=== PATIENT | male | born 1955 | race Caucasian/White ===

== ENCOUNTER 2016-08-15 09:22 | Emergency (ER) | payer OTHER ==
[~2016-08-15] VITALS: Ht 185.4 cm; Wt 75.0 kg
[2016-08-15 09:25] VITALS: BP 146/82; PULSE 100; RESP 18; TEMP 97.8; O2SAT 95
[2016-08-15] MEDS ORDERED: bp pill (09:39)
[2016-08-15 11:03] VITALS: BP 156/76; PULSE 64; RESP 18; O2SAT 99
[2016-08-15] MEDS ORDERED: HYDR-3533 PO (11:16)
--- NOTE | 2016-08-15 11:18 | PD ---
HPI Chief Complaint: Lump, Cyst, Hernia Time Seen by Provider: 11:16 Travel History International Travel<30 days: No Contact w/Intl Traveler<30days: No Traveled to known affect area: No History of Present Illness HPI 60-year-old male presents to the emergency department for evaluation of right inguinal hernia. Patient states this has been going on for 6 months. States that [facility] [place] to [facility] this [facility] but states that he has been unable to get transportation. Pain is aggravated with movement and palpation. He denies any fever, chills, nausea, vomiting, diarrhea, constipation, dysuria. He has not been taking anything for pain. No other complaints. PFSH Past Medical History Heart Rhythm Problems: Yes (VTACH?) Diminished Hearing: No GERD: Yes Hypertension: Yes Immunizations Current: Yes Tetanus Vaccination: < 5 Years Influenza Vaccination: No Past Surgical History Eye Surgery: Yes (L EYE RETINA REATTACHMENT;R EYE CATARACT) Social History Alcohol Use: Yes (6 PK DAY "not for the last four days" 08/15/16) Tobacco Use: Yes (1/2 PPD "probably less than that" 08/15/16) Substance Use: No Allergies-Medications (Allergen,Severity, Reaction): Coded Allergies: No Known Allergies (Verified , 08/06/13) Reported Meds & Prescriptions Reported Meds & Active Scripts Active Lortab (Hydrocodone-Acetaminophen) 5-325 Mg Tab 1 Tab PO Q6H PRN Reported [bp pill] Review of Systems Except as stated in HPI: all other systems reviewed are Neg Physical Exam Narrative GENERAL: Well-nourished and well-developed pleasant male patient in no acute distress who is nontoxic appearing. SKIN: Warm and dry. HEAD: Normocephalic and atraumatic. EYES: No injection, drainage, or hyphema noted. PERRLA. EOMI. ENT: No nasal drainage noted. Oropharynx is clear. NECK: Supple and the trachea is midline. CARDIOVASCULAR: Regular rate and rhythm. RESPIRATORY: Breath sounds are equal bilaterally with no accessory muscle use, wheezing, rhonchi, or crackles. GASTROINTESTINAL: Approximately 4 cm in diameter right inguinal hernia that is soft and easily reducible. Abdomen is soft, non-tender, and nondistended. MUSCULOSKELETAL: No obvious deformities, swelling, cyanosis, or ecchymosis is present throughout the upper and lower extremities. Patient has full range of motion without any signs of neurovascular compromise. NEUROLOGICAL: Awake, alert, and oriented. Normal speech and gait. Cranial nerves are grossly intact. Data Data Last Documented VS Vital Signs Date Time Temp Pulse Resp B/P Pulse Ox O2 Delivery O2 Flow Rate FiO2 08/15/16 11:03 64 18 156/76 99 Room Air 08/15/16 09:25 97.8 MDM Medical Decision Making Medical Screen Exam Complete: Yes Emergency Medical Condition: Yes Differential Diagnosis Reducible inguinal hernia versus incarcerated versus other Narrative Course 60-year-old male presents to the emergency department for evaluation of right inguinal hernia that has been going on for 6 months. Patient is afebrile, vital signs are stable. Patient has no signs or symptoms of an incarcerated or strangulated hernia, it is easily reducible on examination. He is here expecting us to surgically repair the hernia today. He has been referred by the [facility] to go to [place] to have this done. I discussed with him that this is something to schedule an outpatient and that he needs [facility] with the [facility]. We'll give him Lortab for pain. Patient verbalizes understanding. I discussed the case with my attending physician Dr. Avelar who is aware of the patients history, physical examination findings, and treatment plan. Diagnosis Primary Impression: Reducible right inguinal hernia Referrals: General Surgeon Primary Care Physician Patient Instructions: General Instructions Additional Instructions: Take medications as prescribed. Do not take Lortab with alcohol or while driving. [facility] with [facility]. Return to the ED for any acute worsening of symptoms. Med/Other Pt SpecificInfo: Prescription(s) given Scripts Hydrocodone-Acetaminophen (Lortab)5-325 Mg Tab1 Tab PO Q6H PRN (PAIN) #20 TAB Ref 0 Prov:Bebo Avelar MD 08/15/16 Disposition: 01 DISCHARGE HOME Condition: Stable Tracy Schuler Aug 15, 2016 11:18
== END 2016-08-15 12:11 | disposition home or self-care (01) ==
LOC: NEPC 09:22
DX: K40.90 Unilateral inguinal hernia, without obstruction or gangrene, not specified as recurrent (principal); I10 Essential (primary) hypertension; F17.210 Nicotine dependence, cigarettes, uncomplicated
CPT/HCPCS: 99283

== ENCOUNTER 2016-09-15 08:39 | Inpatient (IN) | payer OTHER ==
[~2016-09-15] VITALS: Ht 182.9 cm; Wt 72.0 kg
[2016-09-15] VITALS (7 sets, daily range): BP systolic 120–148; BP diastolic 61–81; PULSE 93–110; RESP 16–22; TEMP 97.5–98.1; O2SAT 93–98
[~2016-09-15 08:39] MED LIST: HYDR-3533 PO; bp pill
[2016-09-15] MEDS ORDERED: SODIUM CHLORIDE 0.9% FLUSH 5 ML FLUSH IVF PRN (09:15)
[2016-09-15] MEDS ORDERED: MORPHINE SULFATE 4 MG/ML INJ IV PUSH ONE ×2 (09:15→11:00)
[2016-09-15] MEDS ORDERED: ONDANSETRON HCL 4 MG/2 ML VIAL IV PUSH ONE (09:15)
[2016-09-15 09:48] LABS: AUTOMATED NEUTROPHIL # 9.4 TH/MM3 (1.8-7.7); BASOPHIL % 0.3 % (0.0-2.0); EOSINOPHIL % 0.1 % (0.0-4.0); HEMATOCRIT 43.3 % (39.0-51.0); HEMO FLAGS DIFF FINAL; LYMPH % 7.2 % (9.0-44.0); LYMPHOCYTE # 0.9 TH/MM3 (1.0-4.8); MEAN CELL VOLUME 101.2 FL (80.0-100.0); MEAN CORPUSCULAR HGB CONC 34.6 % (32.0-36.0); MONO % 14.5 % (0.0-8.0); NEUT % 77.9 % (16.0-70.0); PLATELET COUNT 110 TH/MM3 (150-450); RED BLOOD COUNT 4.28 MIL/MM3 (4.50-5.90); RED CELL DISTRIBUTION WIDTH 14.7 % (11.6-17.2)
--- NOTE | 2016-09-15 09:49 | RADRPT ---
EXAM DATE/TIME: 09/15/2016 09:25 [facility] COMPARISON: No previous studies available for comparison. INDICATIONS : Chest Pain MEDICAL HISTORY : Hypertension. SURGICAL HISTORY : None. ENCOUNTER: Initial ACUITY: 1 day PAIN SCORE: 4/10 LOCATION: Bilateral chest FINDINGS: A single view of the chest demonstrates the lungs to be symmetrically aerated without evidence of mas s, infiltrate or effusion. The cardiomediastinal contours are unremarkable. Osseous structures are intact. CONCLUSION: No acute disease. Louie Chung MD on September 15, 2016 at 9:47 Board Certified Radiologist. This report was verified electronically.
[2016-09-15 09:58] LABS: APTT (PATIENT) 33.4 SEC (24.3-30.1); INTERNATIONAL NORMALIZED RATIO 1.6 RATIO
--- NOTE | 2016-09-15 10:01 | PD ---
HPI Chief Complaint: Abdominal Pain Time Seen by Provider: 09:07 Travel History International Travel<30 days: No Contact w/Intl Traveler<30days: No Traveled to known affect area: No History of Present Illness HPI Patient is a 60-year-old male who presents to emergency room with complaints of abdominal pain and swelling which has increased over the past 3 weeks. Patient reports that he is an alcoholic, reports that he drinks about 5 beers per day for the past 30-40 years. Patient reports that over the past 3 weeks, he has noted increased abdominal swelling. Reports that the swelling has progressed to the point where he is having problems eating and drinking. Reports that he has not been able to eat for the past 2 days as his abdomen is so distended and patient reports that he is overall uncomfortable. Patient reports that his last drink was 4 days ago. Patient reports that he has follow-up with primary care doctor and was last seen about one year ago. Patient was told that at that time, he had liver disease, patient reports that he had never followed up with his "liver problems." Patient with no chest pain or shortness of breath. Patient with no fevers or chills. Patient reports that he feels nauseous as his abdomen is distended, no episodes of emesis. PFSH Past Medical History Heart Rhythm Problems: Yes (VTACH?) Cirrhosis: Yes (hepatitis) Diminished Hearing: No GERD: Yes Hypertension: Yes Immunizations Current: Yes Past Surgical History Eye Surgery: Yes (L EYE RETINA REATTACHMENT;R EYE CATARACT) Family History Family History: Negative Social History Alcohol Use: Yes (6 PK DAY "not for the last four days" 08/15/16) Tobacco Use: Yes (1/2 PPD "probably less than that" 08/15/16) Substance Use: No Allergies-Medications (Allergen,Severity, Reaction): Coded Allergies: No Known Allergies (Verified , 09/15/16) Reported Meds & Prescriptions Reported Meds & Active Scripts Active Reported [bp pill] Review of Systems General / Constitutional: No: Fever Eyes: No: Visual changes HENT: No: Headaches Cardiovascular: No: Chest Pain or Discomfort Respiratory: No: Shortness of Breath Gastrointestinal: Positive: Nausea, Abdominal Pain, No: Vomiting, Diarrhea Genitourinary: No: Dysuria Musculoskeletal: No: Pain Skin: No Rash Neurologic: No: Weakness Psychiatric: No: Depression Endocrine: No: Polydipsia Hematologic/Lymphatic: No: Easy Bruising Physical Exam Narrative GENERAL: moderate distress SKIN: Warm and dry. HEAD: Atraumatic. Normocephalic. EYES: Pupils equal and round. No scleral icterus. No injection or drainage. ENT: No nasal bleeding or discharge. Mucous membranes pink and moist. NECK: Trachea midline. No JVD. CARDIOVASCULAR: tachycardic. No murmur appreciated. RESPIRATORY: No accessory muscle use. Clear to auscultation. Breath sounds equal bilaterally. GASTROINTESTINAL: Abdomen soft, abdomen distended MUSCULOSKELETAL: No obvious deformities. No clubbing. No cyanosis. No edema. NEUROLOGICAL: Awake and alert. No obvious cranial nerve deficits. Motor grossly within normal limits. Normal speech. PSYCHIATRIC: Appropriate mood and affect; insight and judgment normal. Data Data Last Documented VS Vital Signs Date Time Temp Pulse Resp B/P Pulse Ox O2 Delivery O2 Flow Rate FiO2 09/15/16 10:47 105 16 141/79 98 Room Air 09/15/16 08:43 97.7 Orders Complete Blood Count With Diff (09/15/16 09:11) Comprehensive Metabolic Panel (09/15/16 09:11) Lipase (09/15/16 09:11) Prothrombin Time / Inr (Pt) (09/15/16 09:11) Act Partial Throm Time (Ptt) (09/15/16 09:11) Urinalysis - C+S If Indicated (09/15/16 09:11) Ct Abd/Pel W Iv Contrast(Rout) (09/15/16 09:11) Iv Access Insert/Monitor (09/15/16 09:11) Ecg Monitoring (09/15/16 09:11) Oximetry (09/15/16 09:11) Morphine Inj (Morphine Inj) (09/15/16 09:15) Sodium Chloride 0.9% Flush (Ns Flush) (09/15/16 09:15) Electrocardiogram (09/15/16 09:11) Chest, Single Ap (09/15/16 09:11) Ammonia (09/15/16 09:11) Ondansetron Inj (Zofran Inj) (09/15/16 09:15) Urine Culture (09/15/16 09:40) Iohexol 350 Inj (Omnipaque 350 Inj) (09/15/16 10:50) Morphine Inj (Morphine Inj) (09/15/16 11:00) Admit Order (Ed Use Only) (09/15/16 11:49) Labs Laboratory Tests Test 09/15/16 09/15/16 09:00 09:40 White Blood Count 12.0 TH/MM3 Red Blood Count 4.28 MIL/MM3 Hemoglobin 15.0 GM/DL Hematocrit 43.3 % Mean Corpuscular Volume 101.2 FL Mean Corpuscular Hemoglobin 35.0 PG Mean Corpuscular Hemoglobin 34.6 % Concent Red Cell Distribution Width 14.7 % Platelet Count 110 TH/MM3 Mean Platelet Volume 8.4 FL Neutrophils (%) (Auto) 77.9 % Lymphocytes (%) (Auto) 7.2 % Monocytes (%) (Auto) 14.5 % Eosinophils (%) (Auto) 0.1 % Basophils (%) (Auto) 0.3 % Neutrophils # (Auto) 9.4 TH/MM3 Lymphocytes # (Auto) 0.9 TH/MM3 Monocytes # (Auto) 1.7 TH/MM3 Eosinophils # (Auto) 0.0 TH/MM3 Basophils # (Auto) 0.0 TH/MM3 CBC Comment DIFF FINAL Differential Comment Prothrombin Time 18.0 SEC Prothromb Time International 1.6 RATIO Ratio Activated Partial 33.4 SEC Thromboplast Time Sodium Level 135 MEQ/L Potassium Level 4.0 MEQ/L Chloride Level 99 MEQ/L Carbon Dioxide Level 24.9 MEQ/L Anion Gap 11 MEQ/L Blood Urea Nitrogen 20 MG/DL Creatinine 1.01 MG/DL Estimat Glomerular Filtration 75 ML/MIN Rate Random Glucose 76 MG/DL Calcium Level 9.0 MG/DL Total Bilirubin 4.3 MG/DL Aspartate Amino Transf 326 U/L (AST/SGOT) Alanine Aminotransferase 120 U/L (ALT/SGPT) Alkaline Phosphatase 276 U/L Ammonia 16 MCMOL/L Total Protein 6.7 GM/DL Albumin 2.0 GM/DL Lipase 345 U/L Urine Color DARK-YELLOW Urine Turbidity CLEAR Urine pH 6.0 Urine Specific [place] 1.016 Urine Protein NEG mg/dL Urine Glucose (UA) NEG mg/dL Urine Ketones NEG mg/dL Urine Occult Blood NEG Urine Nitrite NEG Urine Bilirubin SMALL Urine Urobilinogen 4.0 MG/DL Urine Leukocyte Esterase NEG Urine RBC 2 /hpf Urine WBC 1 /hpf Urine Squamous Epithelial <1 /hpf Cells Urine Bacteria RARE /hpf Urine Mucus FEW /lpf Microscopic Urinalysis Comment CATH-CULTURE IND MDM Medical Decision Making Medical Screen Exam Complete: Yes Emergency Medical Condition: Yes Interpretation(s) EKG at 0939: Sinus tachycardia at 111bpm, qt/qtc: 389/455, no acute st or t wave changes Vital Signs Date Time Temp Pulse Resp B/P Pulse Ox O2 Delivery O2 Flow Rate FiO2 09/15/16 08:50 17 09/15/16 08:50 97 Room Air 09/15/16 08:43 97.7 109 18 138/81 Differential Diagnosis Ascites, liver failure, electrolyte abnormality, alcohol withdrawal Narrative Course Patient is a 60-year-old male with history of alcohol abuse, presents to ER with c/o of abdominal pain and abdominal swelling. Patient reports that he has not been able to eat/drink for the past 2 days, reports that abdomen is severely distended and painful. Denies hx of ascites or denies hepatic encephalopathy. On evaluation, patient's abdomen is grossly distended and tympanic on evaluation. Fluid most likely ascitic fluid. Patient was placed on residential monitor, IV placed. Labs ordered as well as ekg and ct of abdomen pelvis. LFT's and ammonia level ordered as well Vital Signs Date Time Temp Pulse Resp B/P Pulse Ox O2 Delivery O2 Flow Rate FiO2 09/15/16 10:47 105 16 141/79 98 Room Air 09/15/16 08:50 17 09/15/16 08:50 97 Room Air 09/15/16 08:43 97.7 109 18 138/81 CBC & BMP Diagram 09/15/16 09:00 Last Impressions Chest X-Ray 09/15/16 0911 Signed Impressions: Service Date/Time: Thursday, September 15, 2016 09:25 - CONCLUSION: No acute disease. Louie Chung MD Abdomen/Pelvis CT 09/15/16 0911 Signed Impressions: Service Date/Time: Thursday, September 15, 2016 10:32 - CONCLUSION: 1. Cirrhotic liver containing too numerous to count low-density lesions, some of which are indeterminant may be related to cysts, regenerating nodules or other etiologies. Followup outpatient studies are recommended. 2. Prominent lymph nodes in the joy hepatis are nonspecific. 3. Several nonspecific splenic low densities. 4. Cholelithiasis. 5. Large amount of abdominal ascites. 6. Diverticulosis of the colon. 7. Bibasilar densities likely atelectasis. Louie Chung MD Patient grossly uncomfortable and evaluation. Patient with large amount of ascitic fluid in abdomen most likely from alcohol abuse. Patient also with transaminitis was likely secondary to alcohol abuse as well. We'll admit patient to medicine service for further evaluation and possibly pericentesis as inpatient case reviewed with Dr Prasad who accepts pt to service Diagnosis Primary Impression: Abdominal pain Qualified Code: R10.84 - Generalized abdominal pain Additional Impressions: Ascites Qualified Code: R18.8 - Other ascites Liver cirrhosis Qualified Code: K70.31 - Alcoholic cirrhosis of liver with ascites Transaminitis Coagulopathy Admitting Information Admitting Physician Requests: Georgia Carbajal DO Sep 15, 2016 10:01
[2016-09-15 10:04] LABS: BACTERIA, URINE RARE /hpf; BLOOD, URINE NEG (NEG); GLUCOSE,URINE NEG (NEG); KETONE, URINE NEG (NEG); MUCUS URINE FEW /lpf (OCC); NITRITE,URINE NEG (NEG); SQUAMOUS EPITHELIAL CELL URINE <1 /hpf (0-5); URINE COLOR DARK-YELLOW (YELLW/STRAW)
[2016-09-15 10:10] LABS: COMMENT (UR) CATH-CULTURE IND; CULTURE IF INDICATED CATH CULTURE IND
[2016-09-15 10:17] LABS: ALKALINE PHOSPHATASE 276 U/L (45-117); ALT (GPT) 120 U/L (12-78); ANION GAP 11 MEQ/L (5-15); BICARBONATE 24.9 MEQ/L (21.0-32.0); BLOOD UREA NITROGEN 20 MG/DL (7-18); CHLORIDE 99 MEQ/L (98-107); GLOMERULAR FILTRATION RATE 75 ML/MIN (>89); SODIUM (NA) 135 MEQ/L (136-145); TOTAL BILIRUBIN ADULT 4.3 MG/DL (0.2-1.0)
[2016-09-15 10:19] LABS: AST (GOT) 326 U/L (15-37)
[2016-09-15] MEDS ORDERED: IOHEXOL 350 MG/ML 10 ML VIAL (for RAD DIAG) IV ONE (10:50)
--- NOTE | 2016-09-15 11:07 | RADRPT ---
EXAM DATE/TIME: 09/15/2016 10:32 [facility] COMPARISON: No previous studies available for comparison. INDICATIONS : Diffuse abdominal pain. IV CONTRAST: 90 cc Omnipaque 350 (iohexol) IV ORAL CONTRAST: No oral contrast ingested. RADIATION DOSE: 9.95 CTDIvol (mGy) MEDICAL HISTORY : Hypertension. Cirrhosis. SURGICAL HISTORY : None. ENCOUNTER: Initial ACUITY: 2 weeks PAIN SCALE: 9/10 LOCATION: abdomen/pelvis TECHNIQUE: Volumetric scanning of the abdomen and pelvis was performed. Using automated exposure control and ad justment of the mA and/or kV according to patient size, radiation dose was kept as low as reasonably achievable to obtain optimal diagnostic quality images. FINDINGS: LOWER LUNGS: Bibasilar densities likely atelectasis. LIVER: Nodular cirrhotic liver containing numerous to count low-density lesions some of which are indetermin ant. Cholelithiasis. Large amount of abdominal ascites. Prominent lymph nodes in the joy hepatis. SPLEEN: Normal size with several low-density lesions.. PANCREAS: Within normal limits. KIDNEYS: Normal in size and shape. There is no mass, stone or hydronephrosis. ADRENAL GLANDS: Within normal limits. VASCULAR: There is no aortic aneurysm. BOWEL/MESENTERY: Radicular cyst sigmoid colon. There is no free intraperitoneal air or fluid. ABDOMINAL WALL: Within normal limits. RETROPERITONEUM: There is no lymphadenopathy. BLADDER: No wall thickening or mass. REPRODUCTIVE: Within normal limits. INGUINAL: There is no lymphadenopathy or hernia on the left. Fluid containing right inguinal hernia. MUSCULOSKELETAL: Within normal limits for patient age. CONCLUSION: 1. Cirrhotic liver containing too numerous to count low-density lesions, some of which are indetermin ant may be related to cysts, regenerating nodules or other etiologies. Followup outpatient studies ar e recommended. 2. Prominent lymph nodes in the joy hepatis are nonspecific. 3. Several nonspecific splenic low densities. 4. Cholelithiasis. 5. Large amount of abdominal ascites. 6. Diverticulosis of the colon. 7. Bibasilar densities likely atelectasis. Louie Chung MD on September 15, 2016 at 11:02 Board Certified Radiologist. This report was verified electronically.
--- NOTE | 2016-09-15 12:07 | HHI.HP ---
[facility] Service Family Medicine Primary Care Physician [facility] Admission Diagnosis large abdominal ascites with liver cirrhosis and abdominal pain Diagnoses: International Travel<30 Days: No Contact w/Intl Traveler<30days: No Known Affected Area: No History of Present Illness Patient is a 60-year-old man with a history of unspecified liver problems who presents to the emergency department with 2 weeks of abdominal distention, causing pain. Patient was in his normal state of health until about 2 weeks ago , when he noticed that his abdomen was growing in size, become increasingly distended. He noted increasing abdominal pain with palpation/pressure. He also noted that he was increasingly tired, had a lack of appetite, constipation, and worsening shortness of breath. Patient reports drinking about a 6 pack of beer per day since about [age] years of age. Patient reports that he quit drinking about 7 or 8 days ago. Patient reports that he would quit alcohol since going to keep him alive. Patient reports that he has only urinated twice in the past 2 days. Patient came to the emergency room because he couldn't take the pain anymore. He describes his pain as a 5/10 s/p morphine. 9/10 at its worst. Patient presented to the emergency room about 2 weeks ago for a bulging inguinal hernia. He describes a burning sensation when he pushes on his inguinal hernia. Patient reports that he has been taking Ex-Lax for constipation. His last bowel movement was last night, which she describes as only a small amount of stool. He reports that because of his cataract, he does not know the color of his stool. Patient reports eating two meals per day like [employer], hotdogs, but said that he couldn't really eat for the past two weeks. He also describes that it is uncomfortable to swallow, so he takes small bites. (Avelino Cabello MD R1) Review of Systems Constitutional: COMPLAINS OF: Fatigue, Chills, Dizziness, DENIES: Fever, Weight loss, Night Sweats Endocrine: DENIES: Polydipsia, Polyuria Eyes: COMPLAINS OF: Blurred vision, DENIES: Diplopia, Vision loss, Double Vision Ears, nose, mouth, throat: DENIES: Throat pain, Running Nose Respiratory: COMPLAINS OF: Cough (smoker's cough), Shortness of breath, DENIES : Wheezing Cardiovascular: COMPLAINS OF: Dyspnea on Exertion, Lower Extremity Edema, DENIES: Chest pain, Syncope, Orthopnea Gastrointestinal: COMPLAINS OF: Abdominal pain, Constipation, Nausea, Difficulty Swallowing (small bites only ), DENIES: Diarrhea, Vomiting Genitourinary: DENIES: Dysuria Musculoskeletal: DENIES: Joint pain, Muscle aches Integumentary: DENIES: Rash Neurologic: COMPLAINS OF: Localized weakness (can't sleep), DENIES: Headache Psychiatric: DENIES: Anxiety, Depression (Avelino Cabello MD R1) Past Family Social History Past Medical History Patient denies any fevers heart disease, kidney disease Patient endorses some previously known liver disease. Patient endorses a history of hypertension. However he reports that he is out of blood pressure med's Patient denies any history of diabetes. Colonoscopy showed colon cancer a year ago. Dr. Araya. Past Surgical History Eye Surgery: Patient reports a left eye retinal reattachment surgery and a right eye cataract surgery years ago Reported Medications Patient reports being on a blood pressure medication, but he does not know what medication this is. (Avelino Cabello MD R1) Allergies: Coded Allergies: No Known Allergies (Verified , 09/15/16) Active Ordered Medications Current Medications Medications (Trade) Dose Ordered Sig/Davon Route Start Time Stop Time Status Last Admin (NS Flush) 2 ml UNSCH PRN FLUSH 09/15/16 12:15 (NS Flush) 2 ml BID FLUSH 09/15/16 21:00 (Romazicon Inj) 0.2 mg Q1M PRN IV PUSH 09/15/16 12:15 (Ativan) 1 mg Q4H PRN PO 09/15/16 12:15 (Ativan Inj) 1 mg Q4H PRN IV PUSH 09/15/16 12:15 (Ativan) 2 mg Q2H PRN PO 09/15/16 12:15 (Ativan Inj) 2 mg Q2H PRN IV PUSH 09/15/16 12:15 (Ativan Inj) 2 mg Q1H PRN IV PUSH 09/15/16 12:15 (Ativan Inj) 2 mg Q15M PRN IV PUSH 09/15/16 12:15 (Zofran Inj) 4 mg Q6H PRN IV 09/15/16 12:15 (Susan-Colace) 1 tab BID PRN PO 09/15/16 12:15 (Catapres) 0.1 mg Q6H PRN PO 09/15/16 12:15 (Aldactone) 100 mg DAILY PO 09/16/16 09:00 (Lasix) 40 mg DAILY PO 09/16/16 09:00 (KCl) 20 meq DAILY PO 09/16/16 09:00 Cyanocobalamin 100 mcg 100 mcg DAILY PO 09/16/16 09:00 (NS 1000 ml Inj) 1,000 ml @ 70 mls/hr [id number] IV 09/15/16 13:15 (Dilaudid Pf Inj) 0.2 mg Q6HR PRN IV PUSH 09/15/16 13:15 Family History Patient reports that he doesn't know his parents. He has been estranged from them since being 8 years old. Patient reports that he has 2 brothers and 2 sisters, but he does not know anything about any of his family members' health history. Patient reports growing up and [place], [place]. Patient worked in [employer] in [place] for the past 18 years. Patient lives alone with his dog. He endorses having some friends and neighbors who could help him if needed. Social History Alcohol Use: Patient reports drinking about a 6 pack of beer per day since about 20-25 years of age, so for about 35-40 years. Tobacco Use: 1ppd since 10yo. 5-6 cigarettes per day more recently. Substance Use: No (Avelino Cabello MD R1) Physical Exam Vital Signs Vital Signs Date Time Temp Pulse Resp B/P Pulse Ox O2 Delivery O2 Flow Rate FiO2 09/15/16 10:47 105 16 141/79 98 Room Air 09/15/16 08:50 17 09/15/16 08:50 97 Room Air 09/15/16 08:43 97.7 109 18 138/81 Physical Exam GENERAL: This is a cachectic-appearing man who appears uncomfortable but in no acute distress. SKIN: + jaundice. No rashes or ecchymoses noted. Cool and dry. + skin tenting, 4 -5 second cap refill. + UE tattoos. + numerous xanthelasmas on face. HEAD: Atraumatic. Normocephalic. EYES: + cataract in left eye. Right pupil small, round and reactive. Extraocular motions intact. No scleral icterus. No injection or drainage. ENT: Dry mucus membranes. poor dentition. Nose without bleeding, purulent drainage. Throat without erythema, tonsillar hypertrophy or exudate. Uvula midline. Airway patent. NECK: Trachea midline. No JVD or lymphadenopathy. Supple, nontender, no meningeal signs. CARDIOVASCULAR: Tachycardic rate and regular rhythm without murmurs, gallops, or rubs. RESPIRATORY: Breath sounds equal bilaterally with bibasilar crackles. No wheezes or rhonchi. GASTROINTESTINAL: Abdomen tense, mildly tender, distended. No guarding. + fluid wave. + spider angiomata, + caput medusa. + reducible right inguinal hernia. + reducible umbilical hernia. MUSCULOSKELETAL: 2+ pitting edema to knees BL. + anasarca up lower extremities. No scrotal swelling. Extremities without clubbing, cyanosis. No joint tenderness , effusion, or edema noted. No calf tenderness. NEUROLOGICAL: No notable asterixis. Awake and alert. Cranial nerves II through XII grossly intact. Motor and sensory grossly within normal limits. Normal speech. RECTAL: Dried dark material on perineum. heme occult negative. Laboratory Laboratory Tests Test 09/15/16 09/15/16 09:00 09:40 White Blood Count 12.0 Red Blood Count 4.28 Hemoglobin 15.0 Hematocrit 43.3 Mean Corpuscular Volume 101.2 Mean Corpuscular Hemoglobin 35.0 Mean Corpuscular Hemoglobin 34.6 Concent Red Cell Distribution Width 14.7 Platelet Count 110 Mean Platelet Volume 8.4 Neutrophils (%) (Auto) 77.9 Lymphocytes (%) (Auto) 7.2 Monocytes (%) (Auto) 14.5 Eosinophils (%) (Auto) 0.1 Basophils (%) (Auto) 0.3 Neutrophils # (Auto) 9.4 Lymphocytes # (Auto) 0.9 Monocytes # (Auto) 1.7 Eosinophils # (Auto) 0.0 Basophils # (Auto) 0.0 CBC Comment DIFF FINAL Differential Comment Prothrombin Time 18.0 Prothromb Time International 1.6 Ratio Activated Partial 33.4 Thromboplast Time Sodium Level 135 Potassium Level 4.0 Chloride Level 99 Carbon Dioxide Level 24.9 Anion Gap 11 Blood Urea Nitrogen 20 Creatinine 1.01 Estimat Glomerular Filtration 75 Rate Random Glucose 76 Calcium Level 9.0 Total Bilirubin 4.3 Aspartate Amino Transf 326 (AST/SGOT) Alanine Aminotransferase 120 (ALT/SGPT) Alkaline Phosphatase 276 Ammonia 16 Total Protein 6.7 Albumin 2.0 Lipase 345 Urine Color DARK-YELLOW Urine Turbidity CLEAR Urine pH 6.0 Urine Specific [place] 1.016 Urine Protein NEG Urine Glucose (UA) NEG Urine Ketones NEG Urine Occult Blood NEG Urine Nitrite NEG Urine Bilirubin SMALL Urine Urobilinogen 4.0 Urine Leukocyte Esterase NEG Urine RBC 2 Urine WBC 1 Urine Squamous Epithelial <1 Cells Urine Bacteria RARE Urine Mucus FEW Microscopic Urinalysis Comment CATH-CULTURE IND Date/Time Procedure Status Source Growth 09/15/16 09:40 Urine Culture Received Urine Catheterized Urine Pending (Avelino Cabello MD R1) Result Diagram: 09/15/1689909/15/16899 Imaging Last Impressions Chest X-Ray 09/15/16910 Signed Impressions: Service Date/Time: Thursday, September 15, 2016 09:25 - CONCLUSION: No acute disease. Louie Chung MD Abdomen/Pelvis CT 09/15/16910 Signed Impressions: Service Date/Time: Thursday, September 15, 2016 10:32 - CONCLUSION: 1. Cirrhotic liver containing too numerous to count low-density lesions, some of which are indeterminant may be related to cysts, regenerating nodules or other etiologies. Followup outpatient studies are recommended. 2. Prominent lymph nodes in the joy hepatis are nonspecific. 3. Several nonspecific splenic low densities. 4. Cholelithiasis. 5. Large amount of abdominal ascites. 6. Diverticulosis of the colon. 7. Bibasilar densities likely atelectasis. Louie Chung MD (Avelino Cabello MD R1) Assessment and Plan Assessment and Plan Patient is a cachectic-appearing 60-year-old man with a history of liver disease who presents with dehydration requiring IV fluid hydration, new onset ascites for the past 2 weeks, signs and symptoms of cirrhosis, including jaundice and elevated bilirubin. Admit to inpatient for diuresis, paracentesis, GI consult. Code Status No code/DNR Discussed Condition With Patient seen and discussed with Dr. Prasad and Dr. Ashish Ruiz (Avelino Cabello MD R1) Attending Attestation THIS CASE WAS DISCUSSED WITH THE RESIDENT PHYSICIANS. I HAVE REVIEWED THE RECORD AND AGREE WITH THE ABOVE NOTE AND PLAN OF CARE WAS DISCUSSED. I HAVE AUTHORIZED THE ORDER FOR ADMISSION TO AN IN-PATIENT STATUS. (Segun Prasad MD) Problem List: (1) Liver cirrhosis Status: Chronic Plan: Physical examination findings included jaundice, spider angiomata, and ascites. Laboratory abnormalities include elevated serum bilirubin, abnormal aminotransferases, elevated alkaline phosphatase, a prolonged prothrombin time/ elevated international normalized ratio (INR), hyponatremia, and thrombocytopenia. Patient also presented with evidence of cirrhosis on CT abdomen/pelvis. Patient has a MELD score of 19 points, which gives him a 6.0% estimated 3 month mortality. Because patient has a meld score over 10, consider referral to breast worker or liver transplant center, periodically reassess MELD score, screen for hepatocellular carcinoma with serum alpha-fetoprotein. --Diuretics - Lasix 40 mg by mouth daily and spironolactone 100 mg by mouth daily --Potassium chloride 20 mEq by mouth daily for diuretic associated potassium excretion --AFP --GI consult for follow up and possible upper GI endoscopy --Hepatitis profile --Strictly monitor intake and output to monitor for hepatorenal syndrome --BMP qd (2) Ascites Status: Acute Plan: Pt p/w tense abdomen and + fluid wave + pitting edema and anasarca c/w ascites. Low suspicion for spontaneous bacterial peritonitis given lack of fever , significant leukocytosis, significant tenderness to palpation, significant abdominal warmth. --Diagnostic and therapeutic paracentesis with cytology and cell count and diff , glucose, protein, LDH, albumin, amylase, gram stain, and culture --Nothing by mouth in preparation for procedure --may need FFP for elevated INR prior to procedure --monitor for hepatorenal syndrome by strictly monitoring intake and output --Dilaudid 0.2 mg IV push every 6 hours when necessary for pain 6-10 --Hold Tylenol for acute hepatitis/transaminitis. Hold NSAIDs for possible exacerbation of hepatorenal syndrome. Zofran 4 mg IV every 6 hours when necessary for nausea --Diuretics as above (3) Alcohol abuse Status: Chronic Plan: Patient reports drinking about a 6 pack per day for the past 35-40 years. --CIWA --blood alcohol level --Multivitamin, folate, thiamine, vitamin B12 (for elevated MCV) by mouth daily (4) Dehydration Status: Acute Plan: Patient presented with dry mucous membranes, positive skin tenting, delayed capillary refill. Patient reports decreased urine output. Normal saline IV at 70 mL per hour Intake and output as above (5) Constipation Status: Acute Plan: Patient presents with constipation. MiraLAX 17 g by mouth daily scheduled Susan-Colace one tab by mouth twice a day when necessary for constipation (6) Xanthelasma Status: Acute Plan: Numerous xanthelasmas present on patient's face. Lipid panel (7) HTN (hypertension) Status: Chronic Plan: Patient reports a history of hypertension but doesn't know his blood pressure medication. Continue to monitor blood pressure and Clonidine 0.1 mg by mouth every 6 hours when necessary for blood pressure over 160/90 Hydralazine 10 mg IV every 6 hours when necessary for blood pressure over 180/ 100 (8) Nutrition, metabolism, and development symptoms Status: Acute Plan: Fluids: Normal saline IV at 70 mL per hour Electrolytes: Monitor and replete Nutrition: Nothing by mouth except meds in preparation for procedure GI prophylaxis: Not indicated at this time (9) Contraindication to anticoagulation therapy Status: Acute Plan: Patient scheduled for diagnostic and therapeutic paracentesis with already elevated INR of 1.6. Also at increased risk of bleeding. SCDs bilaterally for DVT/VTE prophylaxis (Avelino Cabello MD R1) Physician Certification 2 Midnight Certification Type: Admission for Inpatient Services Order for Inpatient Services The services are ordered in accordance with Medicare regulations or non- Medicare payer requirements, as applicable. In the case of services not specified as inpatient-only, they are appropriately provided as inpatient services in accordance with the 2-midnight benchmark. Estimated LOS (days): 2 2 days is the estimated time the patient will need to remain in the hospital, assuming treatment plan goals are met and no additional complications. Post-Hospital Plan: Not yet determined (Avelino Cabello MD R1) Problem Qualifiers (1) Liver cirrhosis: Qualified Code: K70.31 - Alcoholic cirrhosis of liver with ascites (2) Ascites: Qualified Code: R18.8 - Other ascites (3) Xanthelasma: Qualified Code: H02.63 - Xanthelasma of eyelid, bilateral (4) HTN (hypertension): Qualified Code: I10 - Essential hypertension Avelino Cabello MD R1 Sep 15, 2016 12:07 Segun Prasad MD Sep 16, 2016 15:56
[2016-09-15] MEDS ORDERED: MORPHINE SULFATE 4 MG/ML INJ IV PUSH PRN (12:15)
[2016-09-15] MEDS ORDERED: ACETAMINOPHEN/HYDROcodone 325 MG/10 MG TAB PO PRN (12:15)
[2016-09-15] MEDS ORDERED: LORazepam 2 MG/ML VIAL IV PUSH PRN ×4 (12:15)
[2016-09-15] MEDS ORDERED: SODIUM CHLORIDE 0.9% FLUSH 5 ML FLUSH FLUSH PRN (12:15)
[2016-09-15] MEDS ORDERED: LORazepam 2 MG TAB PO PRN (12:15)
[2016-09-15] MEDS ORDERED: hydrALAZINE HCL 20 MG/ML VIAL IV PRN (12:15)
[2016-09-15] MEDS ORDERED: cloNIDine HCL 0.1 MG TAB PO PRN (12:15)
[2016-09-15] MEDS ORDERED: DOCUSATE SODIUM 50 MG/SENNA 8.6 MG TAB PO PRN (12:15)
[2016-09-15] MEDS ORDERED: LORazepam 1 MG TAB PO PRN (12:15)
[2016-09-15] MEDS ORDERED: FLUMAZENIL 0.5 MG/5 ML VIAL IV PUSH PRN (12:15)
[2016-09-15] MEDS ORDERED: ONDANSETRON HCL 4 MG/2 ML VIAL IV PRN (12:15)
[2016-09-15] MEDS ORDERED: HYDROmorphone HCL PF 1 MG/ML VIAL IV PUSH PRN (13:15)
--- NOTE | 2016-09-15 16:41 | HHI.HP ---
[facility] Service Family Medicine [facility] Ad[facility] Diagnosis large abdominal ascites with liver cirrhosis and abdominal pain Diagnoses: (1) Liver cirrhosis (2) Ascites (3) Alcohol abuse (4) Dehydration (5) HTN (hypertension) (6) Xanthelasma International Travel<30 Days: No Contact w/Intl Traveler<30days: No Known Affected Area: No History of Present Illness 60 yo M presenting to the ED with a 2 week progressive history of abdominal swelling and pain. He has an extensive alcohol history with drinking at least a six-pack of beer daily x40 years (but states his last drink was 7-8 days ago) . He states that 2 weeks ago, he started to notice his abdomen swelling that has been worsening. It has gotten to the point that it is very painful to move. He has had decreased oral intake over the last 4 days due to difficulty swallowing and feeling full - and that he hasn't eaten anything for the past 2 days due to distention. The abdominal swelling has also made an existing right inguinal hernia much more painful for him, as well. He has been told in the past that he has had liver problems, however has never had a full work-up done. This is the first time that he has had swelling/ distention of his abdomen. He also has a h/o HTN, but states he is otherwise healthy. He endorses some fatigue and SOB due to his abdominal swelling, as well as difficulty eating/drinking due to distention. He endorses some lower extremity swelling as well as decreased urine output. He also endorses some chills. He denies chest pains/palpitations, denies melena/hematochezia, denies syncope/ near syncope, denies vomiting, denies fevers. Review of Systems Constitutional: COMPLAINS OF: Fatigue, Chills, Change in appetite, DENIES: Fever, Dizziness, Night Sweats Endocrine: DENIES: Polydipsia, Polyuria Eyes: DENIES: Blurred vision Ears, nose, mouth, throat: DENIES: Tinnitus, Throat pain Respiratory: COMPLAINS OF: Shortness of breath, DENIES: Cough, Wheezing, Sputum production Cardiovascular: COMPLAINS OF: Dyspnea on Exertion, Lower Extremity Edema, DENIES: Chest pain, Palpitations, Syncope Gastrointestinal: COMPLAINS OF: Abdominal pain, Nausea, Difficulty Swallowing, Anorexia, DENIES: Black stools, Bloody stools, Constipation, Diarrhea, Vomiting Musculoskeletal: DENIES: Joint pain, Muscle aches Hematologic/lymphatic: DENIES: Bruising Neurologic: DENIES: Abnormal gait Psychiatric: DENIES: Anxiety, Confusion Past Family Social History Past Medical History Patient denies any fevers heart disease, kidney disease Patient endorses some previously known liver disease. Patient endorses a history of hypertension. However he reports that he is out of blood pressure [facility]'s Patient denies any history of diabetes. Colonoscopy showed colon cancer a year ago. Dr. Araya. Past Surgical History Eye Surgery: L EYE RETINA REATTACHMENT; R EYE CATARACT years ago Allergies: Coded Allergies: No Known Allergies (Verified , 09/15/16) Family History Patient reports that he doesn't know his parents. He has been estranged from them since being 8 years old. Patient reports there is 2 brothers and 2 sisters , but he does not know anything about any of his family members health history. Patient reports growing up and [place], [place]. Patient worked in [employer] in [place] for the past 18 years. Patient lives alone with his dog. He endorses having some friends and neighbors who could help him if needed. Social History Alcohol Use: Yes (6 PK DAY "not for the last four days" 08/15/16) Tobacco Use: 5-6 cig per day since 10yo. 1ppd earlier. Substance Use: No Physical Exam Vital Signs Vital Signs Date Time Temp Pulse Resp B/P Pulse Ox O2 Delivery O2 Flow Rate FiO2 09/15/16 13:28 97.6 108 20 122/74 93 09/15/16 10:47 105 16 141/79 98 Room Air 09/15/16 08:50 17 09/15/16 08:50 97 Room Air 09/15/16 08:43 97.7 109 18 138/81 Physical Exam GENERAL: Cachectic appearing male, appears older than stated age. Abdomen is distended with thin arms. Appears slightly jaundiced. SKIN: Multiple tattoos on arms. Spider angiomata on abdomen with caput medusa on upper abdomen. Xanthelasmas on upper eyelids. HEAD: Atraumatic, mucus membranes appear dry. EYES: Pupils equal round and reactive. Extraocular motions intact. Mildly jaundiced sclera. Visible cataract in right eye NECK: Trachea midline. No JVD or lymphadenopathy. CARDIOVASCULAR: Regular rate and rhythm without murmurs, gallops, or rubs. RESPIRATORY: Bilateral basilar crackles, otherwise clear to auscultation GASTROINTESTINAL: Abdomen distended, diffusely tender to palpation with umbilical hernia. (+) Fluid wave appreciated. Skin changes as above. Right inguinal hernia easily reducible. MUSCULOSKELETAL: Bilateral lower legs with 2+ pitting edema to mid tibia and diffuse anasarca to the abdomen. 2+ dorsalis pedis pulses. NEUROLOGICAL: Awake and alert. Cranial nerves II through XII intact. Motor and sensory grossly within normal limits. Laboratory Laboratory Tests Test 09/15/16 09/15/16 09:00 09:40 White Blood Count 12.0 Red Blood Count 4.28 Hemoglobin 15.0 Hematocrit 43.3 Mean Corpuscular Volume 101.2 Mean Corpuscular Hemoglobin 35.0 Mean Corpuscular Hemoglobin 34.6 Concent Red Cell Distribution Width 14.7 Platelet Count 110 Mean Platelet Volume 8.4 Neutrophils (%) (Auto) 77.9 Lymphocytes (%) (Auto) 7.2 Monocytes (%) (Auto) 14.5 Eosinophils (%) (Auto) 0.1 Basophils (%) (Auto) 0.3 Neutrophils # (Auto) 9.4 Lymphocytes # (Auto) 0.9 Monocytes # (Auto) 1.7 Eosinophils # (Auto) 0.0 Basophils # (Auto) 0.0 CBC Comment DIFF FINAL Differential Comment Prothrombin Time 18.0 Prothromb Time International 1.6 Ratio Activated Partial 33.4 Thromboplast Time Sodium Level 135 Potassium Level 4.0 Chloride Level 99 Carbon Dioxide Level 24.9 Anion Gap 11 Blood Urea Nitrogen 20 Creatinine 1.01 Estimat Glomerular Filtration 75 Rate Random Glucose 76 Calcium Level 9.0 Total Bilirubin 4.3 Aspartate Amino Transf 326 (AST/SGOT) Alanine Aminotransferase 120 (ALT/SGPT) Alkaline Phosphatase 276 Ammonia 16 Total Protein 6.7 Albumin 2.0 Lipase 345 Urine Color DARK-YELLOW Urine Turbidity CLEAR Urine pH 6.0 Urine Specific [place] 1.016 Urine Protein NEG Urine Glucose (UA) NEG Urine Ketones NEG Urine Occult Blood NEG Urine Nitrite NEG Urine Bilirubin SMALL Urine Urobilinogen 4.0 Urine Leukocyte Esterase NEG Urine RBC 2 Urine WBC 1 Urine Squamous Epithelial <1 Cells Urine Bacteria RARE Urine Mucus FEW Microscopic Urinalysis Comment CATH-CULTURE IND Date/Time Procedure Status Source Growth 09/15/16 09:40 Urine Culture Received Urine Catheterized Urine Pending Result Diagram: 09/15/1689909/15/16899 Imaging Last Impressions Chest X-Ray 09/15/16910 Signed Impressions: Service Date/Time: Thursday, September 15, 2016 09:25 - CONCLUSION: No acute disease. Louie Chung MD Abdomen/Pelvis CT 09/15/16910 Signed Impressions: Service Date/Time: Thursday, September 15, 2016 10:32 - CONCLUSION: 1. Cirrhotic liver containing too numerous to count low-density lesions, some of which are indeterminant may be related to cysts, regenerating nodules or other etiologies. Followup outpatient studies are recommended. 2. Prominent lymph nodes in the joy hepatis are nonspecific. 3. Several nonspecific splenic low densities. 4. Cholelithiasis. 5. Large amount of abdominal ascites. 6. Diverticulosis of the colon. 7. Bibasilar densities likely atelectasis. Louie Chung MD Septic Shock Reassessment Heart: Regular rate and rhythm Lungs: Crackles Skin: Warm, Dry, [place] Peripheral Pulses: Bounding Right Radial Bounding Left Radial Bounding Right Dorsalis Pedis Bounding Left Dorsalis Pedis Capillary Refill: Sluggish, >2 seconds Assessment and Plan Assessment and Plan 60 yo M with h/o alcohol abuse presenting with cirrhosis and ascities Problem List: (1) Liver cirrhosis Status: Chronic Plan: Liver cirrhosis with ascites likely secondary to chronic alcohol abuse No evidence of upper GI bleed or SBP at this time Order placed for diagnostic and therapeutic paracentesis - Ascites fluid to be sent for cell counts and cytology GI consulted for possible EGD if deemed necessary - Diuresis with lasix 40mg and spironolactone 100mg - Lab work including hepatitis panel and AFP pending MELD score calculated at 19 points (6% estimated 3 month mortality) (2) Ascites Status: Acute Plan: Obvious ascites likely secondary to alcoholic cirrhosis No evidence of SBP at this time Medications: Lasix 40mg PO daily Spironolactone 100mg PO daily Paracentesis to be done: --dx and tx tap with cytology and cell counts, glucose, protein, LDH, alb, amylase, cx, gram stain --may need FFP for elevated INR --monitor for hepatorenal syndrome by strictly monitoring I&O's and blood pressure (3) Alcohol abuse Status: Chronic Plan: [facility] protocol ordered --blood alcohol level pending --multi, folate, thiamine, B12 for elevated MCV (4) Dehydration Status: Acute Plan: Gentle fluid hydration with NS at 70ml / hr (5) HTN (hypertension) Status: Acute Plan: Hold home antihypertensive - Monitor vitals (6) Xanthelasma Status: Acute Plan: Lipid panel ordered to evaluate Problem Qualifiers (1) Liver cirrhosis: Qualified Code: K70.31 - Alcoholic cirrhosis of liver with ascites (2) Ascites: Qualified Code: R18.8 - Other ascites (3) HTN (hypertension): Qualified Code: I10 - Essential hypertension (4) Xanthelasma: Qualified Code: H02.63 - Xanthelasma of eyelid, bilateral Segun Prasad MD Sep 15, 2016 16:41
[2016-09-15] MEDS: SODIUM CHLOR 0.9% 1000 ML INJ 1,000 ML IV SCH (16:57)
[2016-09-15 17:09] LABS: HDL CHOLESTEROL 25.2 MG/DL (40.0-60.0); LDH SERUM 1361 U/L (87-241); LDL CHOLESTEROL 29 MG/DL (0-99)
[2016-09-15 17:19] LABS: PERITONEAL HISTIOCYTES 25 %; PERITONEAL LYMPHS 35 %; PERITONEAL POLYS(SEGS) 38 %; PERITONEAL WBC 125 /MM3 (0-10)
[2016-09-15 17:20] LABS: PERITONEAL MESOTHELIAL 2 %
[2016-09-15] MEDS: MULTIVITAMIN TAB PO SCH (17:34)
[2016-09-15] MEDS: THIAMINE HCL 100 MG TAB PO SCH (17:34)
[2016-09-15] MEDS: FOLIC ACID 1 MG TAB PO SCH (17:34)
[2016-09-15] MEDS: POLYETHYLENE GLYCOL 17 GM PKG PO SCH (17:34)
--- NOTE | 2016-09-15 18:59 | PD.CONS ---
HPI History of Present Illness This is a 60 year old male who presents to the emergency department with complaints of worsening abdominal swelling and pain over the past 2 weeks the patient apparently knows that he has cirrhosis secondary to alcohol and in spite of that has continued to drink up until about a week ago when things began to worsen for him as far as the swelling and the pain he denies any hematemesis coffee-ground emesis melena or hematochezia he has a poor appetite he denies any fever or chills he feels fatigued and tired he felt short of breath but since coming through the emergency room he had paracentesis and he feels somewhat relieved the patient apparently is not too compliant with medical follow-ups he tends to see someone at the [place] as needed [facility] Past Medical History Past Medical History Cirrhosis Alcoholism hypertension. However he reports that he is out of blood pressure med's Colonoscopy showed colon cancer a year ago Past Surgical History L EYE RETINA REATTACHMENT; R EYE CATARACT years ago Coded Allergies: No Known Allergies (Verified , 09/15/16) Medications Currently not taking any medication he ran out of his blood pressure pills Family History Noncontributory Social History Patient continues to drink alcohol and he smokes Review of Systems ROS Review of systems Patient denies any headache dizziness blurry vision, but feeling fatigued and tired denies any chest pain but complains of shortness of breath but denies cough fever chills, Denies any palpitations denies any polyuria dysuria hematuria, denies any numbness tingling or weakness, denies any skin rash pruritus or jaundice, denies any easy bruising or bleeding tendency, denies any recent change in mood GI Exam Vitals I&O Vital Signs Date Time Temp Pulse Resp B/P Pulse Ox O2 Delivery O2 Flow Rate FiO2 09/15/16 16:35 97.8 96 18 148/76 94 09/15/16 16:13 97.5 110 22 120/67 97 09/15/16 13:28 97.6 108 20 122/74 93 09/15/16 10:47 105 16 141/79 98 Room Air 09/15/16 08:50 17 09/15/16 08:50 97 Room Air 09/15/16 08:43 97.7 109 18 138/81 Imaging Last Impressions Chest X-Ray 09/15/16 0911 Signed Impressions: Service Date/Time: Thursday, September 15, 2016 09:25 - CONCLUSION: No acute disease. Louie Chung MD Abdomen/Pelvis CT 09/15/16 0911 Signed Impressions: Service Date/Time: Thursday, September 15, 2016 10:32 - CONCLUSION: 1. Cirrhotic liver containing too numerous to count low-density lesions, some of which are indeterminant may be related to cysts, regenerating nodules or other etiologies. Followup outpatient studies are recommended. 2. Prominent lymph nodes in the joy hepatis are nonspecific. 3. Several nonspecific splenic low densities. 4. Cholelithiasis. 5. Large amount of abdominal ascites. 6. Diverticulosis of the colon. 7. Bibasilar densities likely atelectasis. Louie Chung MD Laboratory Test 09/15/16 09/15/16 09/15/16 09:00 09:40 16:26 White Blood Count 12.0 TH/MM3 Red Blood Count 4.28 MIL/MM3 Hemoglobin 15.0 GM/DL Hematocrit 43.3 % Mean Corpuscular Volume 101.2 FL Mean Corpuscular Hemoglobin 35.0 PG Mean Corpuscular Hemoglobin 34.6 % Concent Red Cell Distribution Width 14.7 % Platelet Count 110 TH/MM3 Mean Platelet Volume 8.4 FL Neutrophils (%) (Auto) 77.9 % Lymphocytes (%) (Auto) 7.2 % Monocytes (%) (Auto) 14.5 % Eosinophils (%) (Auto) 0.1 % Basophils (%) (Auto) 0.3 % Neutrophils # (Auto) 9.4 TH/MM3 Lymphocytes # (Auto) 0.9 TH/MM3 Monocytes # (Auto) 1.7 TH/MM3 Eosinophils # (Auto) 0.0 TH/MM3 Basophils # (Auto) 0.0 TH/MM3 CBC Comment DIFF FINAL Differential Comment Prothrombin Time 18.0 SEC Prothromb Time International 1.6 RATIO Ratio Activated Partial 33.4 SEC Thromboplast Time Sodium Level 135 MEQ/L Potassium Level 4.0 MEQ/L Chloride Level 99 MEQ/L Carbon Dioxide Level 24.9 MEQ/L Anion Gap 11 MEQ/L Blood Urea Nitrogen 20 MG/DL Creatinine 1.01 MG/DL Estimat Glomerular Filtration 75 ML/MIN Rate Random Glucose 76 MG/DL Calcium Level 9.0 MG/DL Total Bilirubin 4.3 MG/DL Aspartate Amino Transf 326 U/L (AST/SGOT) Alanine Aminotransferase 120 U/L (ALT/SGPT) Alkaline Phosphatase 276 U/L Ammonia 16 MCMOL/L Lactate Dehydrogenase 1361 U/L Total Protein 6.6 GM/DL Albumin 2.0 GM/DL Triglycerides Level 52 MG/DL Cholesterol Level 65 MG/DL LDL Cholesterol 29 MG/DL HDL Cholesterol 25.2 MG/DL Cholesterol/HDL Ratio 2.57 RATIO Lipase 345 U/L Vitamin B12 Level 4369 PG/ML Folate 5.6 NG/ML Ethyl Alcohol Level LESS THAN 3 MG/DL Urine Color DARK-YELLOW Urine Turbidity CLEAR Urine pH 6.0 Urine Specific [place] 1.016 Urine Protein NEG mg/dL Urine Glucose (UA) NEG mg/dL Urine Ketones NEG mg/dL Urine Occult Blood NEG Urine Nitrite NEG Urine Bilirubin SMALL Urine Urobilinogen 4.0 MG/DL Urine Leukocyte Esterase NEG Urine RBC 2 /hpf Urine WBC 1 /hpf Urine Squamous Epithelial <1 /hpf Cells Urine Bacteria RARE /hpf Urine Mucus FEW /lpf Microscopic Urinalysis Comment CATH-CULTURE IND Peritoneal Fluid WBC 125 /MM3 Peritoneal Fluid RBC 68 /MM3 Peritoneal Fluid Neutrophils 38 % Peritoneal Fluid Lymphocytes 35 % Peritoneal Fluid Mesothelial 2 % Cells Peritoneal Fluid Histiocytes 25 % Peritoneal Fluid Total Protein 0.7 GM/DL Peritoneal Fluid Albumin 0.3 G/DL Peritoneal Fluid LDH 122 U/L Peritoneal Fluid Glucose 88 MG/DL Peritoneal Fluid Amylase 27 U/L Date/Time Procedure Status Source Growth 09/15/16 16:26 Gram Stain Received Fluid Peritoneal Fluid Pending 09/15/16 16:26 Body Fluid Culture Received Fluid Peritoneal Fluid Pending 09/15/16 09:40 Urine Culture Received Urine Catheterized Urine Pending Physical Examination HEENT: Pupils round and reactive to light; normocephalic; atraumatic; jaundice. Throat is clear. NECK: Neck is supple, no JVD, no lymphadenopathy. CHEST: Chest is clear to auscultation and percussion. CARDIAC: Regular rate and rhythm with no murmur gallop or rubs. ABDOMEN: Soft, ascites present status post paracentesis, mild tenderness no rebound or guarding; no hepatosplenomegaly; bowel sounds are present in all four quadrants. EXTREMITIES: No clubbing, cyanosis, or edema. SKIN: Normal; no rash; jaundice. RN BONE MARROW TRANSPLANT: No focal deficits; alert and oriented times three. Assessment and Plan Plan Worsening ascites Alcoholism Underlying cirrhosis with acute alcoholic hepatitis Abnormal imaging with a cirrhotic liver and spots in the liver and lymphadenopathy with a history of colon cancer The patient mentions he may have hepatitis C but he is not quite sure Agree with current supportive care and close monitoring of vitals and blood work The SAAG is greater than 1.1 this is consistent with portal hypertension and cirrhosis No evidence of SBP Low-salt diet and continue with current doses of diuretics and monitor I's and O 's We will obtain tumor markers Further recommendations shall depend on his hospital course Alcohol cessation was emphasized Jose Ramon Ramos MD Sep 15, 2016 18:59
[2016-09-15] MEDS: SODIUM CHLORIDE 0.9% FLUSH 5 ML FLUSH FLUSH SCH (20:17)
[2016-09-16 01:59] VITALS: BP 110/56; PULSE 102; RESP 18; TEMP 96.9; O2SAT 93
[2016-09-16] MEDS: SODIUM CHLOR 0.9% 1000 ML INJ 1,000 ML IV SCH (03:12)
[2016-09-16 06:07] LABS: AUTOMATED NEUTROPHIL # 7.3 TH/MM3 (1.8-7.7); BASOPHIL % 0.3 % (0.0-2.0); EOSINOPHIL % 0.2 % (0.0-4.0); HEMATOCRIT 37.8 % (39.0-51.0); LYMPH % 8.5 % (9.0-44.0); LYMPHOCYTE # 0.8 TH/MM3 (1.0-4.8); MEAN CELL VOLUME 102.3 FL (80.0-100.0); MEAN CORPUSCULAR HEMOGLOBIN 34.9 PG (27.0-34.0); MEAN CORPUSCULAR HGB CONC 34.1 % (32.0-36.0); MONO % 11.3 % (0.0-8.0); NEUT % 79.7 % (16.0-70.0); PLATELET COUNT 96 TH/MM3 (150-450); RED BLOOD COUNT 3.69 MIL/MM3 (4.50-5.90); RED CELL DISTRIBUTION WIDTH 14.7 % (11.6-17.2); WHITE BLOOD COUNT 9.2 TH/MM3 (4.0-11.0)
[2016-09-16 06:10] VITALS: BP 109/67; PULSE 101; RESP 18; TEMP 97.1; O2SAT 93
[2016-09-16 06:11] LABS: HEMO FLAGS AUTO DIFF
[2016-09-16 06:19] LABS: INTERNATIONAL NORMALIZED RATIO 1.6 RATIO; PROTHROMBIN TIME - PATIENT 17.9 SEC (9.8-11.6)
[2016-09-16 06:40] LABS: ALKALINE PHOSPHATASE 210 U/L (45-117); ALT (GPT) 79 U/L (12-78); ANION GAP 8 MEQ/L (5-15); AST (GOT) 170 U/L (15-37); BICARBONATE 25.7 MEQ/L (21.0-32.0); BLOOD UREA NITROGEN 23 MG/DL (7-18); CHLORIDE 102 MEQ/L (98-107); GLOMERULAR FILTRATION RATE 84 ML/MIN (>89); SODIUM (NA) 136 MEQ/L (136-145); TOTAL BILIRUBIN ADULT 3.7 MG/DL (0.2-1.0)
[2016-09-16 07:48] LABS: PLATELET ESTIMATE SMEAR LOW (NORMAL); PLATELET MORPHOLOGY NORMAL (NORMAL); SCAN/DIFF AUTO DIFF CONFIRMED
[2016-09-16 08:00] VITALS: BP 118/66; PULSE 100; RESP 18; TEMP 96; O2SAT 94
[2016-09-16] MEDS: SODIUM CHLORIDE 0.9% FLUSH 5 ML FLUSH FLUSH SCH (08:00)
[2016-09-16] MEDS ORDERED: FUROSEMIDE 40 MG TAB PO SCH (09:00)
[2016-09-16] MEDS ORDERED: SPIRONOLACTONE 100 MG TAB PO SCH (09:00)
[2016-09-16] MEDS: POLYETHYLENE GLYCOL 17 GM PKG PO SCH (09:00)
[2016-09-16] MEDS ORDERED: POTASSIUM CHLORIDE 10 MEQ CONTROLLED RELEASE TAB PO SCH (09:00)
[2016-09-16] MEDS ORDERED: CYANOCOBALAMIN 100 MCG TAB PO SCH (09:00)
[2016-09-16] MEDS: MULTIVITAMIN TAB PO SCH (09:34)
[2016-09-16] MEDS: FOLIC ACID 1 MG TAB PO SCH (09:35)
[2016-09-16] MEDS: THIAMINE HCL 100 MG TAB PO SCH (09:39)
[2016-09-16] MEDS ORDERED: INFLUENZA VIRUS VACCINE (QUADRIVALENT) 0.5 ML SYR IM ONE (10:00)
--- NOTE | 2016-09-16 11:13 | RADRPT ---
EXAM DATE/TIME: 09/15/2016 14:17 [place] COMPARISON: No previous studies available for comparison. INDICATIONS : Ascites. MEDICAL HISTORY : Hypertension. Gastroesophageal reflux disease. Blind in left eye. Irregular heartbeat. Liver disease . SURGICAL HISTORY : Right cataract removal. Left eye retina reattachment surgery. ENCOUNTER: Initial ACUITY: 2 weeks PAIN SCORE: 5/10 LOCATION: Right lower quadrant FLUID: Total volume of 4000 cc of clear, yellow fluid was removed. Fluid was sent to lab for ordered studies. Post procedure scanning reveals no hematoma or other complication. TECHNIQUE: 1. Ultrasound guidance for abdominal paracentesis. 2. Paracentesis. The risks, benefits, and alternatives to ultrasound guided paracentesis were explained to the patient in detail including the risk of bleeding and infection. Written and verbal informed consent was obt ained. With the patient on the ultrasound table, ultrasound imaging was used to select the most appropriate approach for paracentesis. Overlying skin was prepped and draped in the usual sterile fashion and wi th a local anesthetic, a dermatotomy was made with an 11 blade scalpel. A 6 [place] [id number] ca theter was introduced into the peritoneal cavity and fluid was collected. The patient tolerated the procedure well and left the ultrasound suite in stable condition. CONCLUSION: Uncomplicated ultrasound guided paracentesis. Jerad Andrade MD on September 16, 2016 at 11:11 Board Certified Radiologist. This report was verified electronically.
--- NOTE | 2016-09-16 11:49 | HHI.DCPOC ---
Discharge Care Plan Diagnosis: (1) Ascites (2) Liver cirrhosis (3) Alcohol abuse Goals to Promote Your Health * To prevent worsening of your condition and complications * To maintain your health at the optimal level Directions to Meet Your Goals Take your medications as prescribed Follow your dietary instruction Follow activity as directed Keep your appointments as scheduled Take your immunizations and boosters as scheduled If your symptoms worsen call your PCP, if no PCP go to Urgent Care Center or Emergency Room Smoking is Dangerous to Your Health. Avoid second hand smoke Call the 24-hour hour crisis hotline for domestic abuse at Dagoberto Sellers MD R3 Sep 16, 2016 11:48
[2016-09-16] MEDS ORDERED: FURO1TAB60 PO (11:54)
[2016-09-16] MEDS ORDERED: SPIR100T PO (11:55)
--- NOTE | 2016-09-16 11:55 | EKG ---
Date Performed: 09/15/2016 Time Performed: 09:39:44 PTAGE: 60 years EKG: SINUS TACHYCARDIA SEPTAL MYOCARDIAL INFARCTION ABNORMAL ECG PREVIOUS TRACING : 08/06/2013 10.33 DOCTOR: Karthikeyan Russ Interpretating Date/Time 09/16/2016 11:49:13
[2016-09-16 12:00] VITALS: BP 120/73; PULSE 102; RESP 18; TEMP 96.6; O2SAT 95
--- NOTE | 2016-09-16 13:56 | HHI.FPPN ---
Subjective Remarks No acute events overnight. Pulse in the 90s to 100s. Blood pressure ranging from 110-148/50s-70s. Pulse ox ranged from 93-95% on room air. Patient remained afebrile. Patient reports decreased abdominal pain, distention, shortness of breath after paracentesis. (Avelino Cabello MD R1) Objective Vitals Vital Signs Date Time Temp Pulse Resp B/P Pulse Ox O2 Delivery O2 Flow Rate FiO2 09/16/16 12:00 96.6 102 18 120/73 95 09/16/16 08:00 96.0 100 18 118/66 94 09/16/16 06:10 97.1 101 18 109/67 93 09/16/16 01:59 96.9 102 18 110/56 93 09/15/16 20:47 98.1 93 18 127/61 93 09/15/16 16:35 97.8 96 18 148/76 94 09/15/16 16:13 97.5 110 22 120/67 97 (Avelino Cabello MD R1) Result Diagram: 09/16/16 0550 09/16/16 0550 Imaging Last Impressions Chest X-Ray 09/15/16 0911 Signed Impressions: Service Date/Time: Thursday, September 15, 2016 09:25 - CONCLUSION: No acute disease. Louie Chung MD Abdomen/Pelvis CT 09/15/1611 Signed Impressions: Service Date/Time: Thursday, September 15, 2016 10:32 - CONCLUSION: 1. Cirrhotic liver containing too numerous to count low-density lesions, some of which are indeterminant may be related to cysts, regenerating nodules or other etiologies. Followup outpatient studies are recommended. 2. Prominent lymph nodes in the joy hepatis are nonspecific. 3. Several nonspecific splenic low densities. 4. Cholelithiasis. 5. Large amount of abdominal ascites. 6. Diverticulosis of the colon. 7. Bibasilar densities likely atelectasis. Louie Chung MD Cyst Biopsy Asp-Paracentesis US 09/15/16 0000 Signed Impressions: Service Date/Time: Thursday, September 15, 2016 14:17 - CONCLUSION: Uncomplicated ultrasound guided paracentesis. Jerad Andrade MD Objective Remarks GENERAL: This is a cachectic-appearing man who appears uncomfortable but in no acute distress. SKIN: + jaundice. No rashes or ecchymoses noted. Cool and dry. + UE tattoos. + numerous xanthelasmas on face. HEAD: Atraumatic. Normocephalic. EYES: + cataract in left eye. Right pupil small, round and reactive. Extraocular motions intact. No scleral icterus. No injection or drainage. ENT: Dry mucus membranes, but improved. poor dentition. Nose without bleeding, purulent drainage. Throat without erythema, tonsillar hypertrophy or exudate. Uvula midline. Airway patent. NECK: Trachea midline. No JVD or lymphadenopathy. Supple, nontender, no meningeal signs. CARDIOVASCULAR: Tachycardic rate and regular rhythm without murmurs, gallops, or rubs. RESPIRATORY: Breath sounds equal bilaterally with bibasilar crackles. No wheezes or rhonchi. GASTROINTESTINAL: Abdomen less tense, less tender, less distended. No guarding. + fluid wave. + spider angiomata, + caput medusa. + umbilical hernia. MUSCULOSKELETAL: 1+ pitting edema to knees BL. no more anasarca up lower extremities. Extremities without clubbing, cyanosis. No joint tenderness, effusion, or edema noted. No calf tenderness. NEUROLOGICAL: Awake and alert. Cranial nerves II through XII grossly intact. Motor and sensory grossly within normal limits. Normal speech. No tremor noted. (Avelino Cabello MD R1) A/P Assessment and Plan Patient is a cachectic-appearing 60-year-old man with a history of liver disease who presents with dehydration requiring IV fluid hydration, new onset ascites for the past 2 weeks, signs and symptoms of cirrhosis, including jaundice and elevated bilirubin. Admit to inpatient for diuresis, paracentesis, GI consult. Discharge Planning Anticipate discharge today (Avelino Cabello MD R1) Attending Attestation Pt. examined and case discussed with resident physicians I have read the above note and agree with the assessment/plan as discussed with me I was involved in all medical decision making for this patient Segun Prasad MD (Segun Prasad MD) Problem List: (1) Liver cirrhosis Status: Chronic Plan: Patient with liver cirrhosis. --Diuretics - Lasix 40 mg by mouth daily and spironolactone 100 mg by mouth daily --Potassium chloride 20 mEq by mouth daily for diuretic associated potassium excretion --AFP within normal limits at 3.3 --CEA elevated at 9.8 --GI consult okay for discharge. Recommend follow-up as outpatient --Hepatitis profile for transaminitis --Strictly monitor intake and output to monitor for hepatorenal syndrome --CMP qd --SAAG greater than 1.1. Consistent with portal hypertension and cirrhosis. Recommended low-salt diet Recommended alcohol cessation (2) Ascites Status: Acute Plan: Pt p/w tense abdomen and + fluid wave + pitting edema and anasarca c/w ascites. Low suspicion for spontaneous bacterial peritonitis given lack of fever , significant leukocytosis, significant tenderness to palpation, significant abdominal warmth. --Diagnostic and therapeutic paracentesis with SAAG greater than 1.1, consistent with portal hypertension, liver cirrhosis --strictly monitoring intake and output --Dilaudid 0.2 mg IV push every 6 hours when necessary for pain 6-10 --Hold Tylenol for acute hepatitis/transaminitis. Hold NSAIDs for possible exacerbation of hepatorenal syndrome. Zofran 4 mg IV every 6 hours when necessary for nausea --Diuretics as above (3) Alcohol abuse Status: Chronic Plan: Patient reports drinking about a 6 pack per day for the past 35-40 years. --CIWA --blood alcohol level --Multivitamin, folate, thiamine, vitamin B12 (for elevated MCV) by mouth daily (4) Dehydration Status: Acute Plan: Patient presented with dry mucous membranes, positive skin tenting, delayed capillary refill. Patient reports decreased urine output. Normal saline IV at 70 mL per hour Intake and output as above (5) Constipation Status: Acute Plan: Patient presents with constipation. MiraLAX 17 g by mouth daily scheduled Susan-Colace one tab by mouth twice a day when necessary for constipation (6) Xanthelasma Status: Acute Plan: Numerous xanthelasmas present on patient's face. Lipid panel shows low cholesterol of 65, low HDL of 25.2, otherwise within normal limits. (7) HTN (hypertension) Status: Chronic Plan: Patient reports a history of hypertension but doesn't know his blood pressure medication. Continue to monitor blood pressure and Clonidine 0.1 mg by mouth every 6 hours when necessary for blood pressure over 160/90 Hydralazine 10 mg IV every 6 hours when necessary for blood pressure over 180/ 100 (8) Nutrition, metabolism, and development symptoms Status: Acute Plan: Fluids: Normal saline IV at 70 mL per hour Electrolytes: Monitor and replete Nutrition: Low salt diet GI prophylaxis: Not indicated at this time (9) Contraindication to anticoagulation therapy Status: Acute Plan: Patient scheduled for diagnostic and therapeutic paracentesis with already elevated INR of 1.6. Also at increased risk of bleeding. SCDs bilaterally for DVT/VTE prophylaxis (Aveilno Cabello MD R1) Problem Qualifiers (1) Liver cirrhosis: Qualified Code: K70.31 - Alcoholic cirrhosis of liver with ascites (2) Ascites: Qualified Code: R18.8 - Other ascites (3) Xanthelasma: Qualified Code: H02.63 - Xanthelasma of eyelid, bilateral (4) HTN (hypertension): Qualified Code: I10 - Essential hypertension Avelino Cabello MD R1 Sep 16, 2016 13:56 Segun Prasad MD Sep 16, 2016 20:00
== END 2016-09-16 16:55 | disposition home or self-care (01) | DRG 433 ==
LOC: NEPE 08:39 → NEDA 11:50 → NEPGCP 13:21 → OBSVTOIN 16:32
PROVIDERS: ADMIT Family Medicine; ATTEND Family Medicine
PROC: 0W9G3ZX Drainage of Peritoneal Cavity, Percutaneous Approach, Diagnostic (ICD-10-PCS; principal; 2016-09-16)
DX: K70.31 Alcoholic cirrhosis of liver with ascites (principal); R64 Cachexia; E86.0 Dehydration; K70.11 Alcoholic hepatitis with ascites; F10.20 Alcohol dependence, uncomplicated; I10 Essential (primary) hypertension; H26.9 Unspecified cataract; H54.42 Blindness, left eye, normal vision right eye; K40.90 Unilateral inguinal hernia, without obstruction or gangrene, not specified as recurrent; K59.00 Constipation, unspecified; F17.290 Nicotine dependence, other tobacco product, uncomplicated; H02.60 Xanthelasma of unspecified eye, unspecified eyelid; Z91.19 Patient's noncompliance with other medical treatment and regimen; Z85.038 Personal history of other malignant neoplasm of large intestine; Z66 Do not resuscitate; Z23 Encounter for immunization
CPT/HCPCS: 49083; 71010; 74177; 80053; 80061; 80074; 80320; 81001; 82042; 82105; 82140; 82150; 82378; 82607; 82746; 82945; 83615; 83690; 84155; 84157; 84425; 85025; 85610; 85730; 87070; 87086; 87205; 88112; 88305; 89051; 90686; 93005; 96374; 96375; 96376; C1729; J2270; J2405; J7030; Q2038; Q9967